=== PATIENT | male | born 1965 | race Two or more races ===

== ENCOUNTER 2018-09-08 13:37 | Emergency (ER) | payer MEDICAID ==
[~2018-09-08] VITALS: Ht 172.7 cm; Wt 69.4 kg
[2018-09-08 13:37] VITALS: BP 119/75
--- NOTE | 2018-09-08 16:35 | NUR ---
CALLED TO ROOM IN,NO ANSWER
--- NOTE | 2018-09-08 16:50 | NUR ---
CALLED TO ROOM IN, NO ANSWER
[2018-09-08 19:25] LABS: BASOPHILS % (AUTO) 0.5 % (0.0-2.0); EOSINOPHILS % (AUTO) 5.6 % (0.0-6.0); HEMATOCRIT 41 % (39-51); HEMOGLOBIN 13.4 g/dL (13.5-17.5); LYMPHOCYTES % (AUTO) 37.7 % (20.0-44.0); MEAN CORPUSCULAR HGB CONC 33 g/dl (31.0-36.0); MEAN CORPUSCULAR VOLUME 83 fL (80-96); MONOCYTES # (AUTO) 0.8 /CMM (0.1-1.30); MONOCYTES % (AUTO) 14.5 % (2.0-12.0); NEUTROPHILS # (AUTO) 2.2 /CMM (1.8-8.9); NEUTROPHILS % (AUTO) 41.7 % (43.0-81.0); PLATELET COUNT (AUTO) 231 /CMM (150-450); RED BLOOD CELL COUNT(AUTO) 4.96 MIL/uL (4.5-6.0); WHITE BLOOD COUNT (AUTO) 5.4 K/uL (4.3-11.0)
[2018-09-08 19:34] LABS: CALCIUM, SERUM 8.9 mg/dL (8.5-10.1); CARBON DIOXIDE 28 mmol/L (21-32); CHLORIDE 104 mmol/L (98-107); CREATININE 0.9 mg/dL (0.6-1.3); GLUCOSE 92 mg/dL (74-106); POTASSIUM 4.5 mmol/L (3.5-5.1); SODIUM SERUM 139 mmol/L (136-145); UREA NITROGEN, BLOOD 20 mg/dL (7-18)
[2018-09-08 19:36] LABS: APPEARANCE,URINE Clear (CLEAR); BILIRUBIN,URINE Negative (NEGATIVE); BLOOD, URINE Negative Ery/uL (NEGATIVE); KETONES,URINE Negative (NEGATIVE); LEUKOCYTE ESTERASE ,URINE Negative (NEGATIVE); NITRITE, URINE Negative (NEGATIVE); PROTEIN,URINE Negative (NEGATIVE); UGLUCOSE Negative (NEGATIVE); UROBILINOGEN,URINE 0.2 EU/dL (0.2)
[2018-09-08 19:37] LABS: COLOR,URINE Light yellow (YELLOW)
[2018-09-08 19:41] LABS: ALANINE AMINOTRANSFERASE 53 U/L (12-78); ALBUMIN 3.8 g/dL (3.4-5.0); ALCOHOL, BLOOD < 3 mg/dL (0-0); ALKALINE PHOSPHATASE 151 U/L (46-116); ASPARTATE AMINOTRANSFERASE 29 U/L (15-37); BILIRUBIN,TOTAL 0.1 mg/dL (0.2-1.0); SALICYLATE 1.6 mg/dL (2.8-20.0); TOTAL PROTEIN, SERUM 7.9 g/dL (6.4-8.2)
[2018-09-08 19:42] LABS: ACETAMINOPHEN 0 ug/ml (10-30)
[2018-09-08] MEDS ORDERED: ACETAMINOPHEN ES 500 MG TABLET ONE (19:44)
[2018-09-08] MEDS: ACETAMINOPHEN ES 500 MG TABLET PO ONE (19:45)
--- NOTE | 2018-09-08 19:47 | NUR ---
Patient is resting comfortably in bed with eyes open. will cont to monitor
--- NOTE | 2018-09-08 21:47 | NUR ---
pinky sw at the bd side
--- NOTE | 2018-09-08 23:32 | NUR ---
PT ACCEPTED TO [facility] BY DR CHACON. # FOR REPORT [phone]
--- NOTE | 2018-09-08 23:39 | NUR ---
[facility] CALLED FOR TRANSPORT. ETA 30 MIN. TRIP# [id number]
--- NOTE | 2018-09-09 | NUR ---
REPORTT GIVEN TO MARCO A AT
--- NOTE | 2018-09-09 00:16 | NUR ---
PT WAS PICKED UP BY [facility] IN STABLE CONDITION. BELONGING PICKEDUP BY THE PT. REPORT GIVEN TO digital controls technical officer
== END 2018-09-09 00:25 | disposition short-term general hospital (02) ==
LOC: ER 13:37
DX: R44.0 Auditory hallucinations (principal); R45.851 Suicidal ideations; F90.9 Attention-deficit hyperactivity disorder, unspecified type; G40.909 Epilepsy, unspecified, not intractable, without status epilepticus; E11.9 Type 2 diabetes mellitus without complications; I10 Essential (primary) hypertension; F11.90 Opioid use, unspecified, uncomplicated; Z90.89 Acquired absence of other organs; Z88.0 Allergy status to penicillin; Z60.2 Problems related to living alone
CPT/HCPCS: 36415; 80048; 80076; 80305; 80307; 80329; 81001; 85025; 99285; G0480; 81000-TC

== ENCOUNTER 2023-04-12 23:01 | Emergency (ER) | payer OTHER ==
[~2023-04-12] VITALS: Ht 175.3 cm; Wt 68.0 kg
[2023-04-12 23:31] LABS: BASOPHILS % (AUTO) 0.5 % (0.0-2.0); HEMATOCRIT 41 % (39-51); HEMOGLOBIN 13.1 g/dL (13.5-17.5); LYMPHOCYTES # (AUTO) 0.7 K/uL (0.8-4.8); LYMPHOCYTES % (AUTO) 7.7 % (20.0-44.0); MEAN CORPUSCULAR HEMOGLOBIN 25 PG (26.0-33.0); MEAN CORPUSCULAR HGB CONC 32 g/dl (31.0-36.0); MEAN CORPUSCULAR VOLUME 78 fL (80-96); MONOCYTES % (AUTO) 10.8 % (2.0-12.0); NEUTROPHILS # (AUTO) 7.8 K/uL (1.8-8.9); PLATELET COUNT (AUTO) 365 K/uL (150-450); RED BLOOD CELL COUNT(AUTO) 5.27 MIL/uL (4.5-6.0); RED CELL DISTRIBUTION WIDTH 17.9 % (11.5-15.0); WHITE BLOOD COUNT (AUTO) 9.6 K/uL (4.3-11.0)
[2023-04-12 23:44] LABS: CALCIUM, SERUM 9.7 mg/dL (8.5-10.1); CARBON DIOXIDE 20 mmol/L (21-32); CHLORIDE 104 mmol/L (98-107); CREATININE 1.4 mg/dL (0.6-1.3); GLUCOSE 131 mg/dL (74-106); SODIUM SERUM 139 mmol/L (136-145); UREA NITROGEN, BLOOD 14 mg/dL (7-18)
[2023-04-12] MEDS ORDERED: diphenhydrAMINE HCL 50 MG/ML VIAL ONE (23:46)
[2023-04-12] MEDS ORDERED: HALOPERIDOL LACTATE INJ 5 MG/ML VIAL ONE (23:46)
[2023-04-12] MEDS ORDERED: LORAZEPAM INJ 2 MG/ML VIAL ONE (23:47)
[2023-04-12 23:53] LABS: ALANINE AMINOTRANSFERASE 28 U/L (12-78); ALBUMIN 4.1 g/dL (3.4-5.0); ALKALINE PHOSPHATASE 154 U/L (46-116); ASPARTATE AMINOTRANSFERASE 22 U/L (15-37); BILIRUBIN,DIRECT 0.1 mg/dL (0.0-0.2); BILIRUBIN,TOTAL 0.3 mg/dL (0.2-1.0)
[2023-04-12] MEDS: HALOPERIDOL LACTATE INJ 5 MG/ML VIAL IM ONE (23:54)
[2023-04-12] MEDS: LORAZEPAM INJ 2 MG/ML VIAL IM ONE (23:54)
[2023-04-12] MEDS: diphenhydrAMINE HCL 50 MG/ML VIAL IM ONE (23:54)
[2023-04-12 23:58] LABS: ACETAMINOPHEN <10 ug/ml (10-30); ALCOHOL, BLOOD < 3 mg/dL (0-10); SALICYLATE 1.5 mg/dL (2.8-20.0)
[2023-04-13 08:10] LABS: ADD URINE CULTURE NO; APPEARANCE,URINE CLEAR (CLEAR); BACTERIA,URINE Rare /HPF (None Seen); BILIRUBIN,URINE 1+ (NEGATIVE); BLOOD, URINE NEGATIVE Ery/uL (NEGATIVE); COLOR,URINE DARK YELLOW (YELLOW); KETONES,URINE 1+ mg/dL (NEGATIVE); LEUKOCYTE ESTERASE ,URINE NEGATIVE (NEGATIVE); NITRITE, URINE NEGATIVE (NEGATIVE); PH,URINE 5.5 (5.0-8.0); PROTEIN,URINE 1+ mg/dl (NEGATIVE); SQUAMOUS EPITHELIAL CELL,UR Few /HPF (None Seen); UGLUCOSE NEGATIVE (NEGATIVE); WBC,URINE 0-2 /HPF (0-3)
[2023-04-13 08:24] LABS: BENZODIAZEPINE, URINE NEGATIVE (NEGATIVE); CANNABINOID, URINE NEGATIVE (NEGATIVE); COCCAINE, URINE NEGATIVE (NEGATIVE); OPIATE, URINE NEGATIVE (NEGATIVE); PHENCYCLIDINE SCREEN,URINE NEGATIVE (NEGATIVE)
[2023-04-13 08:39] LABS: AMPHETAMINE, URINE POSITIVE (NEGATIVE); BARBITURATE, URINE POSITIVE (NEGATIVE)
[2023-04-13 13:17] VITALS: BP 144/82; TEMP 98.1; O2SAT 100
== END 2023-04-13 13:19 ==
LOC: ER 23:03
DX: R44.0 Auditory hallucinations (principal); R45.1 Restlessness and agitation; G40.909 Epilepsy, unspecified, not intractable, without status epilepticus; I10 Essential (primary) hypertension; E11.9 Type 2 diabetes mellitus without complications; Z20.822 Contact with and (suspected) exposure to COVID-19; Z90.49 Acquired absence of other specified parts of digestive tract; Z60.2 Problems related to living alone; Z88.0 Allergy status to penicillin
CPT/HCPCS: 99285; 96372 ×2; 85025; 80048; 80076; 36415; 87426; 80143; 80320; 80307; 81001; J2060; J1200; J1630; C9803; G0480